=== PATIENT | female | born 1950 | race Caucasian/White ===

== ENCOUNTER 2017-05-17 10:09 | Outpatient (CLI) | payer MEDICARE ==
--- NOTE | 2017-05-24 16:29 | Mammography Report ---
DIGITAL SCREENING MAMMOGRAM: 05/17/2017 CLINICAL INDICATION: A 66-year-old with family history of breast cancer, for screening. COMPARISON: Films from [place], [place] dated 04/01/2010, 03/19/2009, 03/25/2008, 12/28/2006, . TECHNIQUE: Routine CC and MLO projections were obtained of the breasts. FINDINGS: The breasts demonstrate scattered fibroglandular densities bilaterally. Punctate, typicall y benign calcifications are present. No suspicious masses, clustered microcalcifications, or regions of architectural distortion are identified. IMPRESSION: BENIGN FINDINGS. RECOMMENDATION: ROUTINE ANNUAL SCREENING UNLESS OTHERWISE CLINICALLY INDICATED. BIRADS CATEGORY 2-BENIGN FINDINGS. STANDARD QUALIFYING STATEMENTS 1. This examination was reviewed with the aid of Computer-Aided Detection (CAD). 2. A negative or benign imaging report should not delay biopsy if clinically suspicious findings are present. Consider surgical consultation if warranted. More than 5% of cancers are not identified by i maging. 3. Dense breasts may obscure an underlying neoplasm. JOB #: [id number] EXT JOB #:[id number]
== END 2017-05-17 10:10 | disposition home or self-care (01) ==
LOC: DI 10:09
PROVIDERS: ATTEND Internal Medicine
DX: Z12.31 Encounter for screening mammogram for malignant neoplasm of breast (principal); Z80.3 Family history of malignant neoplasm of breast
CPT/HCPCS: 77067

== ENCOUNTER 2017-05-17 10:13 | Outpatient (CLI) | payer BC, MEDICARE ==
--- NOTE | 2017-05-18 08:28 | DEXA Report ---
DEXA SCAN: 05/17/2017 CLINICAL HISTORY: A 66-year-old postmenopausal female. TECHNIQUE: Dual energy x-ray absorptiometry (DXA) was performed on a [employer] system. Regions measured are the AP spine, femoral neck, and, if needed, forearm. COMPARISON: None. In accordance with the International Society for Clinical Densitometry (ISCD) guidelines, data from previous exams may be reanalyzed using current recommendations and techniques. This is done to allow a more accurate basis for comparison with the current study. FINDINGS: The data for the lumbar spine is as follows: REGION BMD (g/cm/cm) T-SCORE Z-SCORE L1 1.035 -0.8 -0.4 L2 1.486 2.4 2.8 L3 1.770 4.7 5.2 L4 1.554 2.9 3.4 TOTAL 1.468 2.9 2.8 NOTE: All evaluable vertebrae are used for classification. The data for the hip is as follows: REGION BMD (g/cm/cm) T-SCORE Z-SCORE Neck 0.986 -0.4 0.4 TOTAL 1.058 0.4 0.8 NOTE: The femoral neck or total proximal femur, whichever is lowest, is used for classification. IMPRESSION: L1 THROUGH L4 T-SCORE IS 2.4. THIS IS WITHIN NORMAL LIMITS ACCORDING TO THE WORLD HEALTH ORGANIZATION GUIDELINES. LEFT FEMORAL NECK T-SCORE IS -0.4. THIS IS WITHIN NORMAL LIMITS ACCORDING TO THE WORLD HEALTH ORGANIZATION GUIDELINES. TOTAL HIP T-SCORE IS 0.4. THIS IS WITHIN NORMAL LIMITS ACCORDING TO THE WORLD HEALTH ORGANIZATION GUIDELINES. THE WHO CLASSIFICATION BASED ON THE INTERNATIONAL REFERENCE STANDARD IS NORMAL. THE PATIENT HAS NO INCREASED FRACTURE RISK. RECOMMENDATION: Patients with diagnosis of osteoporosis or osteopenia should have regular bone mineral density assessment. For those eligible for Medicare, routine testing is allowed once every 2 years. Testing frequency can be increased for patients who have rapidly progressing disease or for those who are receiving medical therapy to restore bone mass. COMMENT: World Health Organization (WHO) definitions for osteoporosis and osteopenia: NORMAL BMD: T-score at -1.0 or higher, fracture risk is low. OSTEOPENIA BMD: T-score between -1.0 and -2.5, fracture risk is increased. OSTEOPOROSIS BMD: T-score at -2.5 or lower, fracture risk high. National Osteoporosis Foundation recommends: 1. Obtain adequate dietary calcium (at least 1200 mg per day) and vitamin D (400 -800 international units per day). 2. Participate, as appropriate, in regular weightbearing and muscle- strengthening exercise. 3. Avoid tobacco use and reduce alcohol and caffeine intake. 4. For more detailed information see the website at www.NOF.org. MTDD
== END 2017-05-17 10:14 | disposition home or self-care (01) ==
LOC: DI 10:13
PROVIDERS: ATTEND Internal Medicine
DX: Z13.820 Encounter for screening for osteoporosis (principal); N95.8 Other specified menopausal and perimenopausal disorders
CPT/HCPCS: 77080

== ENCOUNTER 2018-05-01 13:45 | Outpatient (CLI) | payer MEDICARE ==
--- NOTE | 2018-05-03 17:41 | Mammography Report ---
DIGITAL BILATERAL MAMMOGRAPHY AND RIGHT BREAST ULTRASOUND: 05/01/2018 HISTORY: Painful right breast lump. Family history of breast cancer. COMPARISON: 05/17/2017 BILATERAL MAMMOGRAPHY: TECHNIQUE: Bilateral digital CC, MLO, and right true lateral views with additional right spot compression views. FINDINGS: There is extensive fatty replacement of the breast tissue. There is a tiny area of faint asymmetric density in the right upper outer quadrant middle third in the region of the palpable lump. This was present on the prior study. Otherwise, there is no dominant mass, architectural distortion, skin thickening, suspicious microcalcifications or significant interval change. STANDARD QUALIFYING STATEMENTS 1. This examination was reviewed with the aid of Computed-Aided Detection (CAD) . 2. A negative or benign imaging report should not delay biopsy if clinically suspicious findings are present. Consider surgical consultation if warranted. More than 5 % of cancers are not identified by imaging. 3. Dense breasts may obscure an underlying neoplasm. RIGHT BREAST ULTRASOUND TECHNIQUE: Real-time scanning is performed of the right breast in the area of the palpable lump. FINDINGS: At the 9-o'clock position, there is a round simple cyst measuring 4 x 3.4 x 4 mm, accounting for the palpable finding. IMPRESSION: BENIGN. BIRADS category 2 - BENIGN FINDINGS. RECOMMENDATION: Suggest return to routine screening in 12 months. TD: 05/01/2018 15:13 TRISH
== END 2018-05-01 13:46 | disposition home or self-care (01) ==
LOC: DI 13:45
PROVIDERS: ATTEND Physician Assistant
DX: N63.10 Unspecified lump in the right breast, unspecified quadrant (principal); N64.4 Mastodynia; Z80.3 Family history of malignant neoplasm of breast
CPT/HCPCS: 76642; 77066

== ENCOUNTER 2018-06-05 14:37 | Emergency (ER) | payer MEDICARE ==
[2018-06-05] MEDS ORDERED: SODIUM CHLORIDE 0.9% 1,000 ML IV ONE (15:30)
[2018-06-05] MEDS ORDERED: KETOROLAC 60 MG/2 ML VIAL IVP STA (15:30)
[2018-06-05] MEDS ORDERED: DEXAMETHASONE 10 MG/ML VIAL PO STA (15:30)
[2018-06-05] MEDS ORDERED: diphenhydrAMINE INJ 50 MG/ML VIAL IVP STA (15:30)
[2018-06-05] MEDS ORDERED: METOCLOPRAMIDE 10 MG/2 ML VIAL IVP STA (15:30)
--- NOTE | 2018-06-05 15:34 | ED Physician Documentation ---
PD HPI HEADACHE - Stated complaint Stated Complaint: HEADACHE - Chief complaint Chief Complaint: Neuro - History obtained from History obtained from: Patient, Family - History of Present Illness Timing - onset: How many weeks ago (2) Timing - details: Gradual onset, Still present Location: Front, Global Quality: Aching. No: Thunderclap Associated symptoms: No: Fever, Stiff neck, Nausea, Vomiting, Weakness, Numbness , Syncope Worsened by: Light, Noise Similar symptoms before: Work up / diagnostics, Treatment Recently seen: Clinic - Additional information Additional information: Patient is a 67 year old female with a history of migraines who is presenting to the emergency department for a migraine. Patient states that it is similar to previous headaches but it is not breaking. Patient states that stress is her main trigger and currently she is under a lot of stress taking care of her who is sick. Patient denies any fever or neurological deficit. patietn states that she saw her pmd who told her she might need a ct. Review of Systems Ten Systems: 10 systems reviewed and negative Constitutional: denies: Fever, Chills Eyes: reports: Photophobia GI: denies: Nausea, Vomiting Musculoskeletal: denies: Neck pain Neurologic: reports: Headache. denies: Confused, Altered mental status, Head injury, LOC PD PAST MEDICAL HISTORY - Past Medical History Past Medical History: Yes Neuro: Migraines Psych: Depression Musculoskeletal: Fibromyalgia - Past Surgical History Past Surgical History: Yes Ortho: Knee replacement, Arthroscopic surgery, Carpal Tunnel surgery /SERVICE PLUMBER: Hysterectomy - Present Medications Home Medications: Ambulatory Orders Medication Instructions Recorded Confirmed Aspirin [Children's Aspirin] 81 mg PO 08/02/13 08/02/13 Duloxetine HCl [Cymbalta] 60 mg PO 08/02/13 08/02/13 Estradiol [Samira] 1 each TD 08/02/13 08/02/13 Etodolac 300 mg PO 08/02/13 08/02/13 Gabapentin [Neurontin] 600 mg PO 08/02/13 08/02/13 Ondansetron [Zofran] 4 mg PO Q6H PRN #10 tablet 08/02/13 Pantoprazole Sodium 40 mg PO 08/02/13 08/02/13 Topiramate [Topamax] 75 mg PO 08/02/13 08/02/13 Amitriptyline HCl 07/10/18 Rizatriptan Benzoate [Maxalt Government Property Inspector] 10 mg PO 06/05/18 - Allergies Allergies/Adverse Reactions: Allergies Allergy/AdvReac Type Severity Reaction Status Date / Time latex Allergy Intermediate Rash Verified 06/05/18 14:50 codeine [Codeine] AdvReac Unknown Hallucinati Verified 08/02/13 16:14 ons morphine AdvReac Unknown Nausea Verified 08/02/13 16:14 - Social History Does the pt smoke?: No Smoking Status: Never smoker Does the pt drink ETOH?: No Does the pt have substance abuse?: No - Immunizations Immunizations are current?: Yes - POLST Patient has POLST: No PD ED PE NORMAL - Vitals Vital signs reviewed: Yes - General General: Alert and oriented X 3 - HEENT HEENT: Atraumatic, PERRL, Moist mucous membranes - Neck Neck: Supple, no meningeal sign - Cardiac Cardiac: RRR - Respiratory Respiratory: No respiratory distress - Abdomen Abdomen: Non tender, Non distended - Derm Derm: Normal color, Warm and dry, No rash - Extremities Extremities: No deformity - Neuro Neuro: Alert and oriented X 3, machine grainer 2-12 intact, No motor deficit, Normal speech Eye Opening: Spontaneous Motor: Obeys Commands Verbal: Oriented GCS Score: 15 PD ED PE EXPANDED - General General: Alert, In Pain Results - Vitals Vitals: Vital Signs - 24 hr 06/05/18 06/05/18 06/05/18 14:42 18:19 18:37 Temperature 36.5 C Heart Rate 85 87 88 Respiratory 16 15 15 Rate Blood Pressure 200/99 H 144/79 H 156/86 H O2 Saturation 99 99 100 06/05/18 06/05/18 06/05/18 19:33 19:56 20:31 Temperature 36.6 C Heart Rate 96 91 80 Respiratory 16 16 16 Rate Blood Pressure 159/89 H 162/83 H 136/68 H O2 Saturation 97 97 99 Oxygen O2 Source Room air - Rads (name of study) ct head Radiology: Final report received (normal) PD MEDICAL DECISION MAKING - ED course Complexity details: reviewed old records, reviewed results, re-evaluated patient , considered differential, d/w patient ED course: patient was seen and examined at bedside. IV access was gained. patient was treated with a liter bolus, toradol, reglan and benadryl. Upon re-evaluation patient stated that her pain was still a 10. Patient was treated with ketamine 20mg and imaging was ordered. When patient returned from imaging she stated that her pain had only decreased from a ten to a 8. Patient was treated with dialudid 1mg. patient responded well to the therapy. Patient had no neurological disfunction. Patient required no further work up at this time and was stable for discharge with outpatient follow up. - Sepsis Event Vital Signs: Vital Signs - 24 hr 06/05/18 06/05/18 06/05/18 14:42 18:19 18:37 Temperature 36.5 C Heart Rate 85 87 88 Respiratory 16 15 15 Rate Blood Pressure 200/99 H 144/79 H 156/86 H O2 Saturation 99 99 100 06/05/18 06/05/18 06/05/18 19:33 19:56 20:31 Temperature 36.6 C Heart Rate 96 91 80 Respiratory 16 16 16 Rate Blood Pressure 159/89 H 162/83 H 136/68 H O2 Saturation 97 97 99 Oxygen O2 Source Room air Departure - Departure Disposition: 01 Home, Self Care Clinical Impression: Migraine Condition: Good Instructions: ED Headache Migraine Follow-Up: Dominick Powell MD [Primary Care Provider] - Tomorrow Comments: You should stay well hydrated and get plenty of rest. you should follow up with doctor tomorrow. You may return to the emergency department at any time for new, worsening or uncontrollable symptoms. Discharge Date/Time: 06/05/18 20:40
[2018-06-05] MEDS ORDERED: KETAMINE 500 MG/10 ML VIAL IVP STA (17:54)
[2018-06-05] MEDS ORDERED: HYDROmorphone 1 MG/ML CARPUJECT IVP STA (19:18)
--- NOTE | 2018-06-05 19:20 | CT Report ---
Procedure Date: 06/05/2018 Accession Number: [id number] / [id number] Procedure: CT - Head W/O CPT Code: FULL RESULT: EXAM: CT HEAD EXAM DATE: 06/05/2018 06:49 PM. CLINICAL HISTORY: Persistent headaches. COMPARISON: 08/02/2013. TECHNIQUE: Multiaxial CT images were obtained from the foramen magnum to the vertex. Reformats: Coronal. IV contrast: None. In accordance with CT protocol optimization, one or more of the following dose reduction techniques were utilized for this exam: automated exposure control, adjustment of mA and/or KV based on patient size, or use of iterative reconstructive technique. FINDINGS: Parenchyma: No intraparenchymal hemorrhage. No evidence of mass, midline shift, or CT findings of infarction. Del Real-white differentiation is distinct. Extraaxial Spaces: Normal for age. No subdural or epidural collections. Ventricles: Normal in size and position. Sinuses and Orbits: Imaged paranasal sinuses, orbits, and mastoids show no significant abnormality. Bones: Unremarkable. Other: None. IMPRESSION: Normal head CT. RADIA
[2018-06-05] MEDS ORDERED: oxyCODONE/ACET 5/325 Prepack 4 PO STA (20:26)
[2018-06-05 20:33] VITALS: BP 136/68
== END 2018-06-05 20:40 | disposition home or self-care (01) ==
LOC: ED 14:37
DX: G43.909 Migraine, unspecified, not intractable, without status migrainosus (principal); Z96.659 Presence of unspecified artificial knee joint; Z79.82 Long term (current) use of aspirin
CPT/HCPCS: 70450; 96361; 96374; 96375; 99283; 99284; J1170; J1200; J2765

== ENCOUNTER 2018-08-11 21:10 | Emergency (ER) | payer MEDICARE ==
--- NOTE | 2018-08-11 22:11 | XRAY Report ---
Reason: chest pain,sob Procedure Date: 08/11/2018 Accession Number: [id number] / [id number] Procedure: XR - Chest 1 View X-Ray CPT Code: 50965 FULL RESULT: EXAM: CHEST RADIOGRAPHY EXAM DATE: 08/11/2018 10:00 PM. CLINICAL HISTORY: Chest pain,sob. COMPARISON: XR CHEST 1 VIEWS 04/22/2011 7:47 PM. TECHNIQUE: 1 view. FINDINGS: Lungs/Pleura: Streaky opacity seen at the left lung base. The right lung is clear. No pleural effusion or pneumothorax. Mediastinum: Within exam limitations, the cardiomediastinal contour is normal. Other: None. IMPRESSION: Streaky left basilar opacity secondary to atelectasis versus airspace infiltrate. RADIA
[2018-08-11 22:28] LABS: ALBUMIN 3.8 g/dL (3.2-5.5); ALBUMIN/GLOBULIN RATIO 1.3 (1.0-2.2); BILIRUBIN,TOTAL 0.3 mg/dL (0.2-1.0); CALCIUM 8.5 mg/dL (8.5-10.3); CREATININE 0.8 mg/dL (0.4-1.0); TOTAL PROTEIN 6.7 g/dL (6.7-8.2)
[2018-08-11] MEDS ORDERED: IOPAMIDOL-300 100 ML VIAL ONE (23:16)
[2018-08-11] MEDS ORDERED: IOPAMIDOL-300 100 ML VIAL IVP ONE (23:34)
--- NOTE | 2018-08-12 00:05 | CT Report ---
Reason: chest pain, elevated dimer Procedure Date: 08/11/2018 Accession Number: [id number] / [id number] Procedure: CT - Chest Angio (PE) CPT Code: FULL RESULT: EXAM: CT ANGIOGRAM CHEST EXAM DATE: 08/11/2018 11:48 PM. CLINICAL HISTORY: Chest pain, elevated dimer. COMPARISON: CHEST W/O 11/22/2014 10:19 AM. TECHNIQUE: Routine helical imaging was performed through the chest in the pulmonary arterial phase. IV Contrast: ISOVUE 300 80mL. Reconstructions: Coronal 3-D MIP reconstructions.Sagittal and coronal. In accordance with CT protocol optimization, one or more of the following dose reduction techniques were utilized for this exam: automated exposure control, adjustment of mA and/or KV based on patient size, or use of iterative reconstructive technique. FINDINGS: Pulmonary Arteries: Diagnostic quality: Adequate through the segmental arteries. Segmental and subsegmental filling defects are seen in several right lung pulmonary artery branches. No definite left lung pulmonary emboli seen. There is no central saddle embolism. RV/LV is within normal limits. There is no interventricular septal bowing. There is no reflux of contrast material in the IVC. Lungs/Pleura: No consolidation, nodules, or edema. No effusions or pneumothorax. Mediastinum: Normal. No cardiac enlargement or adenopathy. Thoracic Aorta: Unremarkable. Upper Abdomen: Unremarkable. Other: None. IMPRESSION: 1. Several acute right lung segmental and subsegmental pulmonary artery branch emboli. RADIA
[2018-08-12 00:33] LABS: BASOPHILS % (AUTO) 0.9 %; EOSINOPHILS # (AUTO) 0.3 10^3/uL (0.0-0.7); EOSINOPHILS % (AUTO) 5.8 %; HGB - HEMOGLOBIN 12.8 g/dL (12.0-16.0); LYMPHOCYTES # (AUTO) 2.1 10^3/uL (1.5-3.5); MEAN CORPUSCULAR HEMOGLOBIN 28.2 pg (27.0-31.0); MEAN CORPUSCULAR HGB CONC 33.5 g/dL (32.0-36.0); MEAN CORPUSCULAR VOLUME 84.3 fL (81.0-99.0); MONOCYTES # (AUTO) 0.4 10^3/uL (0.0-1.0); MONOCYTES % (AUTO) 7.9 %; NEUTROPHILS # (AUTO) 2.3 10^3/uL (1.5-6.6); NEUTROPHILS % (AUTO) 45.4 %; PLT - PLATELET COUNT 201 10^3/uL (130-450); RED BLOOD COUNT 4.54 10^6/uL (4.20-5.40); RED CELL DISTRIBUTION WIDTH 14.4 % (12.0-15.0); WHITE BLOOD COUNT 5.2 x10^3/uL (4.8-10.8)
[2018-08-12] MEDS ORDERED: RIVAROXABAN 15 MG TABLET PO STA (00:33)
[2018-08-12 00:57] VITALS: BP 147/83
--- NOTE | 2018-08-12 01:10 | ED Physician Documentation ---
PD HPI CHEST PAIN - Stated complaint Stated Complaint: SOA/SIDE PX - Chief complaint Chief Complaint: Cardiac - History obtained from History obtained from: Patient, Family - History of Present Illness Timing - onset: Yesterday Timing - onset during: Rest Timing - details: Gradual onset, Still present Quality: Pressure, Aching Location: Left chest Radiation: Back Improved by: Rest Worsened by: Exertion, Inspiration Associated symptoms: Shortness of air, General Weakness Similar symptoms before: Has not had sx before Recently seen: Not recently seen - Additional information Additional information: Patient is a 67 year old female with no significant past medical history who is presenting to the emergency department for chest pain. patient states that it has been going on for the last few days. It is worse with exertion and patient reports generally just not feeling well. Review of Systems Constitutional: denies: Fever, Chills Cardiac: reports: Chest pain / pressure, Pedal edema. denies: Palpitations Respiratory: reports: Dyspnea. 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 - Present Medications Home Medications: Ambulatory Orders Medication Instructions Recorded Confirmed Aspirin [Children's Aspirin] 81 mg PO 08/02/13 08/02/13 Duloxetine HCl [Cymbalta] 60 mg PO 08/02/13 08/02/13 Estradiol [Samira] 1 each TD 08/02/13 08/02/13 Etodolac 300 mg PO 08/02/13 08/02/13 Gabapentin [Neurontin] 600 mg PO 08/02/13 08/02/13 Ondansetron [Zofran] 4 mg PO Q6H PRN #10 tablet 08/02/13 Pantoprazole Sodium 40 mg PO 08/02/13 08/02/13 Topiramate [Topamax] 75 mg PO 08/02/13 08/02/13 Amitriptyline HCl 06/05/18 Rizatriptan Benzoate [Maxalt Home Advisor] 10 mg PO 06/05/18 Rivaroxaban [Xarelto] 15 mg PO BID #41 tablet 08/12/18 Rivaroxaban [Xarelto] 20 mg PO DAILY #14 tablet 08/12/18 - Allergies Allergies/Adverse Reactions: Allergies Allergy/AdvReac Type Severity Reaction Status Date / Time latex Allergy Intermediate Rash Verified 08/11/18 21:26 codeine [Codeine] AdvReac Unknown Hallucinati Verified 08/11/18 21:26 ons morphine AdvReac Unknown Nausea Verified 08/11/18 21:26 - Social History Does the pt smoke?: No Smoking Status: Never smoker Does the pt drink ETOH?: No Does the pt have substance abuse?: No - Immunizations Immunizations are current?: Yes - POLST Patient has POLST: No PD ED PE NORMAL - Vitals Vital signs reviewed: Yes - General General: Alert and oriented X 3, No acute distress - HEENT HEENT: Atraumatic, PERRL - Cardiac Cardiac: RRR, No murmur - Respiratory Respiratory: No respiratory distress, Clear bilaterally - Abdomen Abdomen: Soft, Non tender, Non distended - Derm Derm: Normal color, Warm and dry, No rash - Extremities Extremities: No deformity - Neuro Neuro: Alert and oriented X 3, No motor deficit, Normal speech Eye Opening: Spontaneous Results - Vitals Vitals: Vital Signs - 24 hr 08/11/18 08/11/18 21:23 23:20 Temperature 36.3 C L Heart Rate 89 76 Respiratory 18 18 Rate Blood Pressure 195/91 H 147/83 H O2 Saturation 98 97 Oxygen O2 Source Room air - EKG (time done) 2130 Rate: Rate (enter#) (83) Rhythm: NSR Anthon: Normal Intervals: Normal MI QRS: Normal Ischemia: Normal ST segments - Labs Labs: Laboratory Tests 08/11/18 08/11/18 08/11/18 22:08 22:08 22:08 WBC RBC Hgb Hct MCV MCH MCHC RDW Plt Count MPV Neut # (Auto) Lymph # (Auto) [place] # (Auto) Eos # (Auto) Baso # (Auto) Absolute Nucleated RBC Nucleated RBC % D-Dimer Sodium 138 Potassium 3.5 Chloride 105 Carbon Dioxide 27 Anion Gap 6.0 BUN 15 Creatinine 0.8 Estimated GFR (MDRD) 72 L Glucose 83 Calcium 8.5 Total Bilirubin 0.3 AST 21 ALT 17 Alkaline Phosphatase 81 Troponin I < 0.04 B-Natriuretic Peptide 34 Total Protein 6.7 Albumin 3.8 Globulin 2.9 Albumin/Globulin Ratio 1.3 Lipase 40 08/11/18 08/12/18 22:08 00:30 WBC 5.2 RBC 4.54 Hgb 12.8 Hct 38.3 MCV 84.3 MCH 28.2 MCHC 33.5 RDW 14.4 Plt Count 201 MPV 8.0 Neut # (Auto) 2.3 Lymph # (Auto) 2.1 [place] # (Auto) 0.4 Eos # (Auto) 0.3 Baso # (Auto) 0.0 Absolute Nucleated RBC 0.00 Nucleated RBC % 0.0 D-Dimer 474.3 H Sodium Potassium Chloride Carbon Dioxide Anion Gap BUN Creatinine Estimated GFR (MDRD) Glucose Calcium Total Bilirubin AST ALT Alkaline Phosphatase Troponin I B-Natriuretic Peptide Total Protein Albumin Globulin Albumin/Globulin Ratio Lipase - Rads (name of study) ct angio chest Radiology: Final report received (segmental and sub segmental PE) PD MEDICAL DECISION MAKING - ED course Complexity details: reviewed old records, reviewed results, re-evaluated patient, considered differential, d/w patient, d/w family, d/w hearing consultant ED course: Patient was seen and examined at bedside. ekg was performed and was normal sinus. iv access was gained and labs were drawn. Patient's bnp and troponin were negative but patient had an elevated d-dimer so CT angio was performed. It showed sub segmental and segmental PE without any sign of right heart strain. Case was discussed with the patient who was offered admission. patient stated that she would rather start the medications and follow up with her doctor. Patient was started on xeralto 15 mg bid. Patient and daughter were given detailed discharge and follow up instructions. Patient and family were comfortable with the plan and patient was stable for discharge with outpatient follow up. - Sepsis Event Vital Signs: Vital Signs - 24 hr 08/11/18 08/11/18 21:23 23:20 Temperature 36.3 C L Heart Rate 89 76 Respiratory 18 18 Rate Blood Pressure 195/91 H 147/83 H O2 Saturation 98 97 Oxygen O2 Source Room air Departure - Departure Disposition: 01 Home, Self Care Clinical Impression: Pulmonary embolism Condition: Stable Instructions: Embolism Pulmonary Dc Follow-Up: Dominick Powell MD [Primary Care Provider] - Tomorrow Prescriptions: Rivaroxaban [Xarelto] 15 mg PO BID #41 tablet Rivaroxaban [Xarelto] 20 mg PO DAILY #14 tablet Comments: Your symptoms today are being caused by blood clots in your chest. You are being started on xarelto. You will take 15mg twice a day for 21 days, then 20mg daily. You cannot take any nsaids while taking it. You should call your doctor on monday and schedule a follow up appointment. You will need to be screened for cancer and should schedule an echocardiogram. You can return to the emergency department at any time for new, worsening or uncontrollable symptoms. Discharge Date/Time: 08/12/18 01:18
== END 2018-08-12 01:18 | disposition home or self-care (01) ==
LOC: ED 21:10
DX: I26.99 Other pulmonary embolism without acute cor pulmonale (principal); Z96.659 Presence of unspecified artificial knee joint; Z79.82 Long term (current) use of aspirin
CPT/HCPCS: 36415; 71045; 71275; 80053; 83690; 83880; 84484; 85025; 85379; 93005; 99283

== ENCOUNTER 2018-08-12 22:05 | Emergency (ER) | payer MEDICARE ==
--- NOTE | 2018-08-12 22:44 | ED Physician Documentation ---
PD HPI CHEST PAIN - Stated complaint Stated Complaint: CHEST PX - Chief complaint Chief Complaint: Resp - History obtained from History obtained from: Patient, Family - History of Present Illness Timing - onset: How many days ago (4) Timing - details: Gradual onset, Still present Quality: Sharp Location: Left chest Worsened by: Palpation, Position Associated symptoms: Shortness of air Similar symptoms before: Work up / diagnostics, Treatment Recently seen: Emergency Dept - Additional information Additional information: Patient is a 67 year old female with a history of fibromyalgia, and diagnosed yesterday with pulmonary embolisms who is presenting to the emergency department for left lateral chest pain. Patient was started on xeralto last night and was told to come back if her symptoms worsened. Patient states that she had pain along the outside of her left chest. patient's PEs were found on the right side. Review of Systems Ten Systems: 10 systems reviewed and negative Constitutional: denies: Fever, Chills Cardiac: reports: Chest pain / pressure. denies: Palpitations Respiratory: reports: Dyspnea. denies: Cough, Wheezing PD PAST MEDICAL HISTORY - Past Medical History Past Medical History: Yes Cardiovascular: Pulmonary embolism Neuro: Migraines Psych: Depression Musculoskeletal: Fibromyalgia - Past Surgical History Past Surgical History: Yes Ortho: Knee replacement, Arthroscopic surgery, Carpal Tunnel surgery /MEAT PASSER: Hysterectomy - Present Medications Home Medications: Ambulatory Orders Medication Instructions Recorded Confirmed Aspirin [Children's Aspirin] 81 mg PO 08/02/13 08/02/13 Duloxetine HCl [Cymbalta] 60 mg PO 08/02/13 08/02/13 Estradiol [Samira] 1 each TD 08/02/13 08/02/13 Gabapentin [Neurontin] 600 mg PO 08/02/13 08/02/13 Ondansetron [Zofran] 4 mg PO Q6H PRN #10 tablet 08/02/13 RX: Etodolac 300 mg PO 08/02/13 08/02/13 RX: Pantoprazole Sodium 40 mg PO 08/02/13 08/02/13 Topiramate [Topamax] 75 mg PO 08/02/13 08/02/13 RX: Amitriptyline HCl 06/05/18 Rizatriptan Benzoate [Maxalt Occupational Therapist Home Based] 10 mg PO 06/05/18 Lidocaine Patch 5% [Lidoderm Patch] 1 each TOP DAILY #14 patch 08/12/18 Rivaroxaban [Xarelto] 15 mg PO BID #41 tablet 08/12/18 Rivaroxaban [Xarelto] 20 mg PO DAILY #14 tablet 08/12/18 - Allergies Allergies/Adverse Reactions: Allergies Allergy/AdvReac Type Severity Reaction Status Date / Time latex Allergy Intermediate Rash Verified 08/11/18 21:26 codeine [Codeine] AdvReac Unknown Hallucinati Verified 08/11/18 21:26 ons morphine AdvReac Unknown Nausea Verified 08/11/18 21:26 - Social History Does the pt smoke?: No Smoking Status: Never smoker Does the pt drink ETOH?: No Does the pt have substance abuse?: No - Immunizations Immunizations are current?: Yes - POLST Patient has POLST: No PD ED PE NORMAL - Vitals Vital signs reviewed: Yes - General General: Alert and oriented X 3, No acute distress - HEENT HEENT: Atraumatic - Cardiac Cardiac: RRR, No murmur - Respiratory Respiratory: No respiratory distress - Abdomen Abdomen: Soft, Non tender, Non distended - Derm Derm: Normal color, No rash - Extremities Extremities: No deformity - Neuro Neuro: Alert and oriented X 3, No motor deficit, Normal speech Eye Opening: Spontaneous PD ED PE EXPANDED - Cardiac Cardiac: Chest wall TTP (tenderness to palpation of left lateral chest well, into axillary region and under the left breast) Results - Vitals Vitals: Vital Signs - 24 hr 08/12/18 08/12/18 22:10 23:06 Temperature 37.1 C Heart Rate 92 75 Respiratory 18 18 Rate Blood Pressure 150/80 H 122/71 O2 Saturation 95 94 Oxygen O2 Source Room air PD MEDICAL DECISION MAKING - ED course Complexity details: reviewed old records, re-evaluated patient, considered differential, d/w patient, d/w family, d/w it solutions sales consultant ED course: Patient was seen and examined at bedside. Patient was in no acute distress. Patient's pain was outside of the chest wall on the opposite side of the blood clots. patient's pain was not likely related to the PE. Hospitalist was called and came to evaluate the patient. patient was neither tachycardic or hypoxic. Patient was being appropriately treated for her PE. Patient and family felt comfortable going home. patient required no further inpatient work up and was stable for discharge with outpatient followup. - Sepsis Event Vital Signs: Vital Signs - 24 hr 08/12/18 08/12/18 22:10 23:06 Temperature 37.1 C Heart Rate 92 75 Respiratory 18 18 Rate Blood Pressure 150/80 H 122/71 O2 Saturation 95 94 Oxygen O2 Source Room air Departure - Departure Disposition: 01 Home, Self Care Clinical Impression: Chest wall pain Condition: Good Instructions: ED Chest Pain Costochondritis Follow-Up: Dominick Powell MD [Primary Care Provider] - Prescriptions: Lidocaine Patch 5% [Lidoderm Patch] 1 each TOP DAILY #14 patch Comments: Your symptoms today are unlikely due to your pulmonary embolism. You should continue with your xarelto. You can take tylenol as needed for pain or use the lidoderm patches. You will likely have symptoms for the next few weeks. you should follow up with your doctor this week and can return to the emergency department at any time for new, worsening or uncontrollable symptoms. Discharge Date/Time: 08/12/18 23:12
[2018-08-12] MEDS ORDERED: LIDOCAINE PATCH 5% TOP STA (22:57)
[2018-08-12 23:06] VITALS: BP 122/71
== END 2018-08-12 23:12 | disposition home or self-care (01) ==
LOC: ED 22:05
DX: R07.89 Other chest pain (principal); I26.99 Other pulmonary embolism without acute cor pulmonale; Z96.659 Presence of unspecified artificial knee joint; Z79.82 Long term (current) use of aspirin
CPT/HCPCS: 36415; 71045; 71275; 80053; 83690; 83880; 84484; 85025; 85379; 93005; 99283; A9270; Q9967

== ENCOUNTER 2018-08-17 13:10 | Outpatient (CLI) | payer MEDICARE | END 2018-08-17 13:11 | disposition home or self-care (01) | LOC: DI 13:10 | PROVIDERS: ATTEND Internal Medicine | DX: I26.99 Other pulmonary embolism without acute cor pulmonale (principal) | CPT/HCPCS: 93306 ==

== ENCOUNTER 2018-08-22 19:27 | Outpatient (CLI) | payer MEDICARE ==
--- NOTE | 2018-08-22 22:22 | Ultrasound Report ---
Reason: RECENT PE Procedure Date: 08/22/2018 Accession Number: [id number] / [id number] Procedure: US - Duplex Ext Veins Bilateral CPT Code: FULL RESULT: EXAM: BILATERAL LOWER EXTREMITY VENOUS ULTRASOUND EXAM DATE: 08/22/2018 08:15 PM. CLINICAL HISTORY: RECENT PE. COMPARISON: None. TECHNIQUE: Real-time sonographic vascular imaging was performed by the fashion consultant selling through the lower extremities utilizing both color-flow and Doppler spectral analysis. Multiple public utilities sales representative static images were saved for review. FINDINGS: Right: Common Femoral Vein (CFV): Normal. CFV-GSV Junction: Normal. Profunda Femoral Vein (PFV): Normal. Femoral Vein (FV) Prox: Normal. Femoral Vein (FV) Mid: Normal. Femoral Vein (FV) Dist: Limited visualization. Popliteal Vein: Normal. Posterior Tibial Veins: Limited visualization. Peroneal Veins: Not imaged. Left: Common Femoral Vein (CFV): Normal. CFV-GSV Junction: Normal. Profunda Femoral Vein (PFV): Normal. Femoral Vein (FV) Prox: Normal. Femoral Vein (FV) Mid: Limited visualization. Femoral Vein (FV) Dist: Limited visualization. Popliteal Vein: Normal. Posterior Tibial Veins: Limited visualization. Peroneal Veins: Not imaged. Other: Limited visualization due to patient's body habitus and constant twitching motion. History of fibromyalgia. Calf veins not well seen. IMPRESSION: No evidence for deep venous thrombosis bilaterally. See above. RADIA
== END 2018-08-22 19:28 | disposition home or self-care (01) ==
LOC: DI 19:27
PROVIDERS: ATTEND Internal Medicine
DX: I26.99 Other pulmonary embolism without acute cor pulmonale (principal)
CPT/HCPCS: 93970

== ENCOUNTER 2019-07-08 13:01 | Outpatient (CLI) | payer MEDICARE ==
--- NOTE | 2019-07-08 13:47 | SLEEP CARE CONSULTATION ---
Information from patient questionnaire entered by Cally Baig. I have reviewed and concur with the information entered by Cally Baig. This document represents the service I personally performed and the decisions made by me, See Payan MD, [facility]. History of Present Illness Previous diagnosis: Mild, Obstructive Sleep Apnea-Hypopnea Syndrome AHI: 7.3 Reason for CPAP/BiPAP follow up: other (Restart therapy) HPI additional information: HPI: Mrs. Joshi returned today for follow up of nasal CPAP therapy. She was diagnosed to have mild obstructive sleep apnea-hypopnea syndrome by a home sleep apnea test (HSAT). She was prescribed a CPAP last year but could not tolerate the treatment because she is allergic to the silicone masks. She tried to get a Dream Ibrahim cloth mask but the durable medical supplier cannot find her one. Her CPAP was then taken back because she was not compliance. The durable medical supplier never showed her the new ResMed AirTouch F-20 full face mask that has memory foam as its cushion. The patient would like to restart treatment. Subjective Initial [place] Sleepiness Scale score: 7 Current [place] Sleepiness Scale score: 7 Allergies and Home Medications Home medication list reviewed: Yes Review of Systems Review of systems same as previous: Yes Physical Exam Vital signs obtained and entered by: Dr. Payan Blood Pressure: 110/60 Heart Rate: 76 O2 Saturation: 98 Height: 5 ft 5 in Weight (kg): 92.986 kg Body Mass Index: 34.1 BMI Classification: Class 1 Neck circumference: 16 Mood/affect: Normal Impression and Plan IMPRESSION: 1. Obstructive Sleep Apnea-Hypopnea Syndrome, mild, presently untreated. The patient has lost some weight but continues to snore loudly. Because she was non-compliant, another sleep study is required to confirm the diagnosis before Medicare will cover the positive airway pressure therapy again. If she continues to have significant sleep disordered breathing, I will specify the ResMed AirTouch F-20 full face mask. PLAN: 1. Order an in-laboratory polysomnography. 2. Try to lose more weight 3. Return for follow up after the sleep study. This visit is time-based and I spent 15 minutes with the patient and more than 50% of the time was spent counseling the patient. I spent 100% of this 15 minute visit face to face with the patient with greater than 50% of this was spent time counseling the patient and coordination of care.
[2019-07-08 13:50] VITALS: BP 110/60
== END 2019-07-08 13:02 | disposition home or self-care (01) ==
LOC: SC 13:01
PROVIDERS: ATTEND Internal Medicine Pulmonary Disease
DX: G47.33 Obstructive sleep apnea (adult) (pediatric) (principal)
CPT/HCPCS: 99213; G0463; 99212

== ENCOUNTER 2019-07-31 20:38 | Outpatient (CLI) | payer MEDICARE | END 2019-07-31 20:39 | disposition home or self-care (01) | LOC: SC 20:38 | PROVIDERS: ATTEND Internal Medicine Pulmonary Disease | DX: G47.33 Obstructive sleep apnea (adult) (pediatric) (principal); G47.61 Periodic limb movement disorder | CPT/HCPCS: 95810 ==

== ENCOUNTER 2019-09-18 13:52 | Outpatient (CLI) | payer MEDICARE ==
[2019-09-18 15:07] VITALS: BP 104/70
--- NOTE | 2019-09-18 15:07 | SLEEP CARE CONSULTATION ---
Information from patient questionnaire entered by Nicole Nunes. I have reviewed and concur with the information entered by Nicole Nunes. This document represents the service I personally performed and the decisions made by me, Sabina Muñoz, RN, MSN, MUTUAL FUND ANALYST. History of Present Illness Accompanied by: daughter Initial [place] Sleepiness Scale score: 7 Current [place] Sleepiness Scale score: 7 Additional HPI information: MARYCARMEN CAT returns with daughter for follow up of the recently performed polysomnography and informed of findings. I explained the pathophysiology behind obstructive sleep apnea. We then spent quite a bit of time discussing different treatment options. For mild obstructive sleep apnea, surgery and oral appliance are alternatives to nasal CPAP therapy but in moderate or severe cases, nasal CPAP is the most effective and reliable treatment. I reviewed the impact of weight changes on sleep apnea and strongly recommended losing weight. After some discussion, the patient opted to go with the nasal CPAP therapy. Nasal autoCPAP set at [id number] will be ordered with rationale explained. A manual titration study will be ordered if unable to find optimal pressure with office adjustments. I explained how CPAP machine works with sample devices RespirMisohoni Dreamstation and Guidesly [id number] and what to expect when using the machine. Using CPAP every night in order to get used to it was emphasized. Patient advised to put CPAP mask on before getting into bed so as not to fall asleep without CPAP. To assist acclimation to CPAP use, it could also be used for a short time during day while reading or watching TV. The patient was instructed to call the CPAP supplier to discuss any mechanical problem that may occur. If the mask given is uncomfortable or is difficult to keep on through the night even with adjustment, contact the CPAP supplier as many will replace with another mask style if notified before 30 days. If snoring or perceives is not getting enough air or too much air from the machine, notify this office. [facility] patient education PAP tips reviewed and non pap treatment options reviewed and given to patient. Patient counseled not drink alcohol less than 4 hours before bedtime as it can increase snoring and apnea. Patient was cautioned about risks of drowsy driving until sleepiness symptoms resolve. Patient denies drowsy driving. [facility] patient education on snoring and sleep apnea given and reviewed. Sleep Study - Polysomnography Polysomnography findings: The quality of the study is good. The patient had normal sleep efficiency. The sleep architecture was abnormal for sleep fragmentation and reduced amount of time spent in REM sleep. Respiratory monitoring showed mild obstructive sleep apnea-hypopnea (AHI = 14.9) associated with frequent arousals, oxyhemoglobin desaturation and mild hypoxia (juan f oxygen saturation of 82%). The respiratory events occurred independently of sleep stage and body position (supine AHI = 12.7; non-supine = 21.78). Snore was loud in intensity. There was severe periodic leg movement of sleep not contributing to the sleep fragmentation. Cardiac rhythm was normal sinus rhythm without significant arrhythmia. No abnormal behavior (parasomnia) observed during the night. Allergies and Home Medications Known drug allergies: Yes Home medication list reviewed: Yes (patient will bring updated list next visit) Allergy and home medication list: Estradiol 1mg tab one daily Pantoprazole DR 40mg tab one daily Estropipate 0.75mg tab one daily Baclofen 10mg tab one twice daily Etodolac 300mg cap one 3 times a day Gabapentin 300mg cap 2 am, 2 pm and [address] 60mg cap one twice daily Topiramate 100mg tab one twice daily Ondansetron 8mg tab once at onset of headache Rizatriptan Benzoate 10mg tab once at onset of headache Clonazepam 0.5mg tab one twice daily Xarelto 20mg tab one daily Zyrtec (Ceterizine) 10mg tab one daily at bedtime Fluticasone Propionate 50mcg/act nasal Two sprays each nostril daily Hydrocholrothiazide 25mg tab once daily Polyethylene glycol powder 12.7g mix with 8oz water daily Docusate Sodium 250mg tab one daily Vitamin D3 25mcg cap one daily Trazodone 50mg nightly for sleep Review of Systems Review of systems same as previous: Yes Physical Exam Blood Pressure: 104/70 Cuff size: long Heart Rate: 76 O2 Saturation: 98 Weight: 214 lb 12.8 oz Impression and Plan 1. Obstructive Sleep Apnea-Hypopnea Syndrome, mild , with lowest oxygen saturation of 82%. Obviously this is the cause of the patients symptoms of unrefreshed sleep, and excessive daytime sleepiness. Positive pressure therapy could benefit her fibromyalgia and depression. As mentioned above, the patient will be re started on nasal autoCPAP therapy with pressure set at 4-15 cmH2O. She failed compliance when tried CPAP before due to mask issues. She has a reaction to the mask cushion. Thus I showed her mask barriers that can be obtained. Also she is to inform DME at set up of latex, silicon allergy. A manual titration study will be completed if unable to find optimal treatment pressure with office adjustments. Compliance guidelines also reviewed. A copy of compliance guidelines will be given for reference at check out. 2. Periodic limb movement,severe , that did not fragment patients sleep. Periodic limb movement of sleep (PLMS) is characterized by episodes of repetitive limb movements that occur during sleep and usually involve the lower limbs. The etiology is unknown but can be associated with restless leg syndrome (RLS), neuropathy, spinal cord diseases, kidney disease, rheumatological disorders, narcolepsy, obstructive sleep apnea, and REM sleep behavior disorder. Other factors that can increase PLMS and/or RLS are heredity and iron deficiency as reflected by a low serum ferritin level below 50 to 75mcg / L. Several medications can precipitate or aggravate PLMS such as selective serotonin re- uptake inhibitor antidepressants, tricyclic antidepressants, lithium, and dopamine receptor antagonists with the exception of bupropion. Caffeine can also aggravate PLMS and should be avoided. Sleep hygiene methods can also improve sleep as well as lifestyle changes such as regular exercise. Patient was advised that no treatment is needed at this time. If symptoms increase, then further evaluation is indicated. Patient has fibromyalgia and is on antidepressants which could augment symptoms. However, further evaluation is advised if her symptoms do not reduce with treatment of her apnea. * Restart Nasal auto CPAP therapy, pressure at 4-15 cm H2O. * Attempt to lose weight. * Needs non- silicone masks. * Consider cloth barriers shown - Pad a Cheek * Avoid alcohol consumption near bedtime. * The patient is again cautioned about driving until sleepiness completely resolves. * Return one month after CPAP obtained. I will assess response to therapy and compliance at that time. I spent 100% of this 45 minute visit face to face with the patient with greater than 50% of this was spent time counseling the patient and coordination of care.
== END 2019-09-18 13:53 | disposition home or self-care (01) ==
LOC: SC 13:52
PROVIDERS: ATTEND Nurse Practitioner Family
DX: G47.33 Obstructive sleep apnea (adult) (pediatric) (principal); G47.61 Periodic limb movement disorder
CPT/HCPCS: 99215; G0463; 99212

== ENCOUNTER 2019-11-28 11:53 | Day surgery (SDC) | payer MEDICARE ==
[2019-11-28] MEDS ORDERED: LACTATED RINGERS 1,000 ML IV ONE ×2 (12:31→14:03)
[2019-11-28] MEDS ORDERED: LIDO GARGLE 30 ML BOTTLE ONE (12:41)
[2019-11-28] MEDS ORDERED: fentaNYL 250 MCG/5 ML VIAL IVP ONE (13:20)
[2019-11-28] MEDS ORDERED: MIDAZOLAM 2 MG/2 ML VIAL IVP ONE (13:20)
[2019-11-28] MEDS ORDERED: LIDO GARGLE 30 ML BOTTLE PO ONE (13:27)
[2019-11-28 14:34] VITALS: BP 107/56
== END 2019-11-28 11:54 | disposition home or self-care (01) ==
LOC: SDS 11:53
PROVIDERS: ATTEND Surgery
PROC: 0DB68ZX Excision of Stomach, Via Natural or Artificial Opening Endoscopic, Diagnostic (ICD-10-PCS; 2019-11-28)
PROC: 0DB48ZX Excision of Esophagogastric Junction, Via Natural or Artificial Opening Endoscopic, Diagnostic (ICD-10-PCS; 2019-11-28)
PROC: 0DJD8ZZ Inspection of Lower Intestinal Tract, Via Natural or Artificial Opening Endoscopic (ICD-10-PCS; principal; 2019-11-28 13:30)
PROC: 0DB98ZX Excision of Duodenum, Via Natural or Artificial Opening Endoscopic, Diagnostic (ICD-10-PCS; 2019-11-28 13:30)
DX: Z12.11 Encounter for screening for malignant neoplasm of colon (principal); K21.9 Gastro-esophageal reflux disease without esophagitis; K29.70 Gastritis, unspecified, without bleeding; G47.30 Sleep apnea, unspecified; F32.9 Major depressive disorder, single episode, unspecified; F41.9 Anxiety disorder, unspecified; N32.89 Other specified disorders of bladder; Z79.02 Long term (current) use of antithrombotics/antiplatelets; Z79.899 Other long term (current) drug therapy; Z87.891 Personal history of nicotine dependence
CPT/HCPCS: 43239; A9270; G0121; J3010; J7120

== ENCOUNTER 2020-01-30 14:16 | Outpatient (CLI) | payer MEDICARE ==
--- NOTE | 2020-01-31 09:30 | Mammography Report ---
Reason: ROUTINE MAMMO Procedure Date: 01/30/2020 Accession Number: [id number] / [id number] Procedure: JOSE - Screening Mammo w/Marquis CPT Code: Final Report FULL RESULT: EXAM: Screening Mammo w/Marquis DATE: 01/30/2020 3:15 PM CLINICAL HISTORY: Screening encounter. Family history of breast cancer in the sister at the age of 50. TECHNIQUE: (B) - Bilateral CC and MLO views were obtained. COMPARISON: 05/01/2018 through 04/01/2010. PARENCHYMAL PATTERN: (A) - The breast(s) demonstrate(s) scattered fibroglandular densities. FINDINGS: There are no suspicious masses, calcifications, or areas of distortion. IMPRESSION: Negative examination. BI-RADS category 1. RECOMMENDATION: (ANNUAL) - Recommend routine annual screening mammography. BI-RADS CATEGORY: (1) - Negative. STANDARD QUALIFYING STATEMENTS: 1. This examination was not reviewed with the aid of Computer-Aided Detection (CAD). 2. A negative or benign imaging report should not preclude biopsy if clinically suspicious findings are present. 3. Dense breasts may obscure an underlying neoplasm. 4. This examination was reviewed with the aid of 3D breast imaging (tomosynthesis).
== END 2020-01-30 14:17 | disposition home or self-care (01) ==
LOC: DI 14:16
PROVIDERS: ATTEND Family Medicine
DX: Z12.31 Encounter for screening mammogram for malignant neoplasm of breast (principal); Z80.3 Family history of malignant neoplasm of breast
CPT/HCPCS: 77063; 77067

== ENCOUNTER 2020-02-25 14:25 | Outpatient (CLI) | payer MEDICARE ==
--- NOTE | 2020-02-25 14:14 | SLEEP CARE CONSULTATION ---
Information from patient questionnaire entered by Nicole Nunes. I have reviewed and concur with the information entered by Nicole Nunes. This document represents the service I personally performed and the decisions made by me, See Payan MD, [facility]. History of Present Illness Previous diagnosis: Mild, Obstructive Sleep Apnea-Hypopnea Syndrome AHI: 14.9 (in 2019) Reason for follow up: first compliance Equipment type: CPAP Equipment obtained from: [facility] HPI additional information: To minimize the risk of COVID-19 exposure, we have the option to conduct your visit with me over the phone. I will be able to discuss your health and offer medical advice. If you agree, we will bill your insurance. Do you agree to this telephone service: YES. HPI: Ms. Joshi was called today to follow up of nasal CPAP therapy. She was diagnosed to have mild obstructive sleep apnea-hypopnea syndrome. The patient wears with a ResMed AirTouch F-20 full face mask (she is allergic to silicone). She reports using the device nightly and all through the night. The compliance data show usage in 23 out of the past 30 nights, averaging 6.3 hours a night. The > 4 hour compliance rate for the past 30 days is 67%. She complained of puffy eyes in the morning but no particular problem with the device such as soreness on the face, dry nose, epistaxis, nasal congestion or headache. She thinks that the pressure of 4 - 15 cmH2O is comfortable. On the CPAP therapy she notices improvement in her sleep quality, and that she wakes up feeling fresher in the morning and more awake/alert during the day. The residual AHI is 2.6; and air leak, 8.1 L/min. The 90th percentile pressure is 11.9 cmH2O. CPAP Compliance Data - Data Reviewed with Patient Average duration of nightly device use: 6.25 Compliance rate %: 67 (01/09/20-02/07/20) Current pressure setting (cmH2O): 4-15 Humidity settin Average residual AHI: 2.6 Subjective Initial [place] Sleepiness Scale score: 7 Allergies and Home Medications Drug allergies reviewed: Yes Home medication list reviewed: Yes Review of Systems Review of systems same as previous: Yes Physical Exam Height: 5 ft 4 in Impression and Plan IMPRESSION: 1. Obstructive Sleep Apnea-Hypopnea Syndrome, mild (AHI was 14.9) with the patient doing well on nasal CPAP therapy. She has excellent compliance and significant clinical improvement. The current pressure appears effective and comfortable. Her mask fits well. Overall, she is very satisfied with treatment and plans to continue with it long-term. No adjustment is necessary today. PLAN: 1. Lower autoCPAP to 5 - 10 cmH2O. 2. Use the CPAP more 3. Try different sizes 4. Return in one month for follow up to check efficacy on the lower pressure setting. I spent 100% of the 12 minute phone call with the patient with greater than 50% of this spent counseling the patient and coordination of care.
== END 2020-02-25 14:26 | disposition home or self-care (01) ==
LOC: SC 14:25
PROVIDERS: ATTEND Internal Medicine Pulmonary Disease
DX: G47.33 Obstructive sleep apnea (adult) (pediatric) (principal)

== ENCOUNTER 2020-03-23 16:14 | Outpatient (CLI) | payer MEDICARE ==
--- NOTE | 2020-03-23 11:29 | SLEEP CARE CONSULTATION ---
Information from patient questionnaire entered by Cally Baig. I have reviewed and concur with the information entered by Cally Baig. This document represents the service I personally performed and the decisions made by me, Sabina Muñoz, RN, MSN, REHABILITATION SERVICES AIDE. History of Present Illness Service Date and Time: 03/23/2020 1100 Previous diagnosis: Mild, Obstructive Sleep Apnea-Hypopnea Syndrome AHI: 14.9 Reason for follow up: one month (with pressure change) Equipment type: CPAP Equipment obtained from: [facility] (no update since set up feels it is due to needing to meet compliance) Mask style: Full face (Air Touch) Mask brand: Resmed Backup mask available: No (Keep current mask when replaced as spare) Last cushion change: none set up CPAP Compliance Data - Data Reviewed with Patient Average duration of nightly device use: 7h 7m Compliance rate %: 93 Current pressure setting (cmH2O): 5-10 Average residual AHI: 2.5 Average large leak: 1.3 liters per minute but 95th % is 22.6 liters per minute Subjective Patient concerns: reports: mask leak noise (having problems keeping seal ), dry mouth, nose, throat (dry mouth). denies: aerophagia, mask discomfort, air blowing in eyes, condensation in mask/hose, nasal congestion, epistaxis, other Observed to snore while using device: No Current pressure setting perceived as: comfortable On therapy, patient: reports: sleeping better, awakening more refreshed, being more awake and alert during the day, more rested overall. denies: drowsiness while driving Initial [place] Sleepiness Scale score: 7 Physical Exam Height: 5 ft 4 in Impression and Plan 1. Obstructive Sleep Apnea-Hypopnea Syndrome, mild, with good treatment compliance and good apnea control. On CPAP therapy, the patient has better sleep quality and is more rested overall. However, she is having difficulty keeping her mask sealed and also having oral dryness. Thus now that she has met juan herndon, she is to call Sanna to update her mask cushions. So far it is working well in no skin irritation as was problem in past use of CPAP. I will also order for Sanna to instruct patient how to adjust humidity to reduce oral dryness. Control of mask leaks will also reduce oral dryness. Patient's apnea severity and rationale for treatment to reduce apnea, improve sleep quality and reduce hypertension, cardiovascular and cerebrovascular events was reviewed. In addition, I discussed how significant weight change can affect her CPAP pressure requirements. * Continue CPAP pressure at [id number] * Update cushion * Change humidity * Notify me if snoring with mask or feeling that the pressure is too much or too little * Call this office if any problems using CPAP * Return for follow up in 3 months , or sooner if concerns arise Visit Type: Telehealth Phone (to minimize COVID 19 exposure risk) Patient Location: Home Other Participants: Child (adult daughter answered question about snoring with CPAP) Location of Provider: Home Patient agrees and consents to this telehealth visit type: Yes Patient agrees to have their insurance billed: Yes Time Spent with Patient (minutes): 10 Provider Statement: I spent 100% of the Telehealth Phone Call with the patient with greater than 50% spent counseling the patient and coordination of care.
== END 2020-03-23 16:15 | disposition home or self-care (01) ==
LOC: SC 16:14
PROVIDERS: ATTEND Nurse Practitioner Family
DX: G47.33 Obstructive sleep apnea (adult) (pediatric) (principal)

== ENCOUNTER 2020-12-23 20:10 | Outpatient (CLI) | payer MEDICARE | END 2020-12-23 20:11 | disposition short-term general hospital (02) | LOC: EMS 20:10 | PROVIDERS: ATTEND Surgery | DX: R07.9 Chest pain, unspecified (principal); R07.1 Chest pain on breathing; M79.605 Pain in left leg | CPT/HCPCS: A0425; A0427 ==

== ENCOUNTER 2021-02-16 14:31 | Outpatient (CLI) | payer MEDICARE ==
--- NOTE | 2021-02-17 13:41 | Mammography Report ---
BILATERAL DIGITAL SCREENING MAMMOGRAM 3D/2D: 02/16/2021 CLINICAL: Routine screening. Comparison is made to exams dated: 01/30/2020 mammogram, 05/01/2018 mammogram, and 05/17/2017 mammogram - [facility]. There are scattered fibroglandular elements in both breasts. No significant masses, calcifications, or other findings are seen in either breast. There has been no significant interval change. IMPRESSION: NEGATIVE There is no mammographic evidence of malignancy. A 1 year screening mammogram is recommended. This exam was interpreted at Station ID: [id number]. NOTE: For mammograms, a report in lay terms will be sent to the patient. Approximately 15% of breast malignancies will not be visualized mammographically. In the management of a palpable breast mass, a negative mammogram must not discourage biopsy of a clinically suspicious lesion. Electronically Signed By: Cj Sierra M.D. ddp/penrad:02/16/2021 15:17:23 ACR BI-RADS Category 1: Negative 3341F PARENCHYMAL PATTERN: (A) - The breast(s) demonstrate(s) scattered fibroglandular densities. BI-RADS CATEGORY: (1) - 1 RECOMMENDATION: (ANNUAL) - Recommend routine annual screening mammography. 20220217 1 year screening LATERALITY: (B)
== END 2021-02-16 14:32 | disposition home or self-care (01) ==
LOC: DI 14:31
PROVIDERS: ATTEND Nurse Practitioner Family
DX: Z12.31 Encounter for screening mammogram for malignant neoplasm of breast (principal)

== ENCOUNTER 2021-04-12 10:39 | Outpatient (CLI) | payer MEDICARE ==
--- NOTE | 2021-04-12 10:59 | SLEEP CARE CONSULTATION ---
Information from patient questionnaire entered by Nicole Nunes. I have reviewed and concur with the information entered by Nicole Nunes. This document represents the service I personally performed and the decisions made by me, See Payan MD, [facility]. History of Present Illness Service Date and Time: 04/12/2021 1039 Previous diagnosis: Mild, Obstructive Sleep Apnea-Hypopnea Syndrome AHI: 14.9 (in 2019) Reason for follow up: annual (last seen 02/2020) Equipment type: CPAP Equipment obtained from: [facility] Mask style: Full face Mask brand: Resmed (Air Touch) Prior sleep studies: Yes Year and Where: 2019 - [facility] Type of Sleep Study: Polysomnography HPI additional information: HPI: Ms. Joshi returned today for follow up of nasal CPAP therapy. She was diagnosed to have mild obstructive sleep apnea-hypopnea syndrome. The patient went to [facility] in [place] for the equipment and was fitted with a full face mask. She reports using the device almost nightly and all through the night. The compliance report shows usage in 148 nights out of the past 180 nights, averaging 6 hours a night. She complained of water condensation in the hose but no particular problem with the device such as soreness on the face, dry nose, epistaxis, nasal congestion or headache. Her heated humidifier is set at 5. She does not know that she can adjust the tube temperature. She thinks that the pressure of 5 - 10 cmH2O is comfortable. On the CPAP therapy she notices improvement in her sleep quality, and that she wakes up feeling fresher in the morning and more awake/alert during the day. The average residual AHI is 2.8 : and air leak, 0.8 L/min. The 90th percentile pressure is 9.9 cmH2O. CPAP Compliance Data - Data Reviewed with Patient Average duration of nightly device use: 5 hr 58 min Compliance rate %: 73 (180 days) Current pressure setting (cmH2O): 5-10 Humidity settin Average residual AHI: 2.8 Subjective Initial [place] Sleepiness Scale score: 7 (in 2018) Allergies and Home Medications Drug allergies reviewed: Yes Home medication list reviewed: Yes Review of Systems Review of systems same as previous: Yes Physical Exam Height: 5 ft 4 in Impression and Plan IMPRESSION: 1. Obstructive Sleep Apnea-Hypopnea Syndrome, mild (AHI was 14.9 in 2019) with the patient doing well on nasal CPAP therapy. She has good compliance and significant clinical improvement. The current pressure appears effective and comfortable. Overall, she is very satisfied with treatment and plans to continue with it long-term. The patient was instructed to adjust the humidity and tube temperature to avoid water condensation in the hose. PLAN: 1. Continue with autoCPAP set at 5 - 10 cmH2O. 2. Try to lose weight 3. Adjust the heated humidifier and tube temperature. 4. Prescription made for supplies and faxed to [facility] in [place]. 5. Return in one year for follow up or earlier if there is any problem with the treatment. Visit Type: Telehealth Video Video Type: VSee Patient Location: Home Location of Provider: Office Patient agrees and consents to this telehealth visit type: Yes Patient agrees to have their insurance billed: Yes Time Spent with Patient (minutes): 15 Provider Statement: I spent 100% of the Telehealth Video Call with the patient with greater than 50% spent counseling the patient and coordination of care.
== END 2021-04-12 10:40 | disposition home or self-care (01) ==
LOC: SC 10:39
PROVIDERS: ATTEND Internal Medicine Pulmonary Disease
DX: G47.33 Obstructive sleep apnea (adult) (pediatric) (principal)

== ENCOUNTER 2021-07-02 16:47 | Outpatient (CLI) | payer MEDICARE ==
--- NOTE | 2021-07-02 18:40 | XRAY Report ---
PROCEDURE: Lumbar Spine 2 View INDICATIONS: LOW BACK PAIN TECHNIQUE: 2 views of the lumbar spine were acquired. COMPARISON: None. FINDINGS: Bones: 5 [id number]-[id number] vertebrae are present. Convex left lumbar scoliosis noted centered at L3. D isc space narrowing and hypertrophic facet joints noted in the lower lumbar spine. Grade 1 anterior s pondylolisthesis present at L4-5. No vertebral body compression fractures. No suspicious bony lesion s. Soft tissues: Overlying bowel gas pattern is normal. No suspicious soft tissue calcifications. IMPRESSION: Multilevel degenerative disease and arthropathy associated with thoracolumbar levoscoliosis and grade 1 L4-5 anterior spondylolisthesis Reviewed by: Jovanny Williamson MD on 07/02/2021 5:38 PM AKDT Approved by: Jovanny Williamson MD on 07/02/2021 5:38 PM AKDT Station ID: [id number]
== END 2021-07-02 16:48 | disposition home or self-care (01) ==
LOC: DI.S 16:47
PROVIDERS: ATTEND Nurse Practitioner Family
DX: M47.816 Spondylosis without myelopathy or radiculopathy, lumbar region (principal); M41.9 Scoliosis, unspecified; M43.16 Spondylolisthesis, lumbar region

== ENCOUNTER 2021-10-07 14:29 | Outpatient (CLI) | payer MEDICARE ==
--- NOTE | 2021-10-07 16:00 | XRAY Report ---
PROCEDURE: Chest 2 View X-Ray INDICATIONS: COUGH TECHNIQUE: 2 view(s) of the chest. COMPARISON: Chest x-ray 08/11/2018. FINDINGS: Surgical changes and devices: Partially visualized cervical fixation plates. Lungs and pleura: No pleural effusions or pneumothorax. Lungs are clear. Mediastinum: Mediastinal contours are normal. Heart size is normal. Bones and chest wall: No suspicious bony abnormalities. Soft tissues appear unremarkable. IMPRESSION: No acute pulmonary process. Reviewed by: Sary Schneider MD on 10/07/2021 3:59 PM PST Approved by: Sary Schneider MD on 10/07/2021 3:59 PM PST Station ID: [id number]
== END 2021-10-07 14:30 | disposition home or self-care (01) ==
LOC: DI.S 14:29
PROVIDERS: ATTEND Nurse Practitioner Family
DX: R05.9 Cough, unspecified (principal)

== ENCOUNTER 2022-06-02 12:54 | Emergency (ER) | payer MEDICARE ==
--- NOTE | 2022-06-02 13:11 | ED Physician Documentation ---
PD HPI MAJOR TRAUMA - Stated complaint Stated Complaint: FALL - Chief complaint Chief Complaint: Trauma Hd/Nk - History obtained from History obtained from: Patient, Family - Additional information Additional information: 71-year-old woman on Eliquis for history of thromboembolic disease thinks she fell asleep while going to the bathroom this morning at 4 AM and fell in the bathroom hitting the tile floor with her head. She felt quite weak and laid there for a few hours until her daughter got her off the ground. She complains of a left-sided headache and there is an obvious hematoma on the left side of the forehead. Loss of consciousness was unclear. She describes the headache as moderate. No other injuries save a mild pain in the right pinky finger. Review of Systems Ten Systems: 10 systems reviewed and negative Constitutional: reports: Reviewed and negative Eyes: reports: Reviewed and negative Throat: reports: Reviewed and negative Cardiac: reports: Reviewed and negative Respiratory: reports: Reviewed and negative PD PAST MEDICAL HISTORY - Past Medical History Past Medical History: Yes Cardiovascular: Pulmonary embolism Respiratory: Sleep apnea Neuro: Migraines GI: GERD HEENT: None Psych: Depression Musculoskeletal: Fibromyalgia, Chronic back pain - Past Surgical History Past Surgical History: Yes Ortho: Knee replacement, Arthroscopic surgery, Carpal Tunnel surgery /OPEN DIE INSPECTOR: Hysterectomy - Present Medications Home Medications: Ambulatory Orders Medication Instructions Recorded Confirmed Duloxetine HCl [Cymbalta] 60 mg PO BID 08/02/13 11/26/19 Etodolac 300 mg PO TID 08/02/13 11/26/19 Gabapentin [Neurontin] 600 mg PO TID 08/02/13 11/26/19 Ondansetron [Zofran] 4 mg PO Q6H PRN #10 tablet 08/02/13 11/26/19 Pantoprazole Sodium 40 mg PO DAILY 08/02/13 11/26/19 Topiramate [Topamax] 75 mg PO DAILY 08/02/13 11/26/19 estradioL [Samira] 1 each TD DAILY 08/02/13 11/26/19 Rizatriptan Benzoate [Maxalt Sap Bi Architect] 10 mg PO PRN PRN 06/05/18 11/26/19 Dabigatran Etexilate Mesylate 150 mg PO BID 11/28/19 11/28/19 [Pradaxa] hydroCHLOROthiazide 12.5 mg PO DAILY 11/28/19 11/28/19 [Hydrochlorothiazide] - Allergies Allergies/Adverse Reactions: Allergies Allergy/AdvReac Type Severity Reaction Status Date / Time latex Allergy Intermediate Rash Verified 06/02/22 13:03 codeine [Codeine] AdvReac Unknown Hallucinati Verified 06/02/22 13:03 ons morphine AdvReac Unknown Nausea Verified 06/02/22 13:03 adhesive tape AdvReac Rash Verified 06/02/22 13:03 amoxicillin [From Augmentin] AdvReac Nausea Verified 06/02/22 13:03 clavulanic acid AdvReac Nausea Verified 06/02/22 13:03 [From Augmentin] - Social History Does the pt smoke?: No Smoking Status: Never smoker Does the pt drink ETOH?: No Does the pt have substance abuse?: No - Immunizations Immunizations are current?: Yes - POLST Patient has POLST: No PD ED PE NORMAL - Vitals Vital signs reviewed: Yes - General General: Alert and oriented X 3, No acute distress - HEENT HEENT: PERRL, EOMI, Other (Bruising and swelling over the left forehead. No facial bony tenderness or deformity.) - Neck Neck: No bony TTP - Cardiac Cardiac: RRR, No murmur - Respiratory Respiratory: No respiratory distress, Clear bilaterally - Abdomen Abdomen: Normal bowel sounds, Soft, Non tender - Back Back: No CVA TTP, No spinal TTP - Derm Derm: Normal color, Warm and dry - Extremities Extremities: Other (I am not able to elicit any tenderness, swelling, or limited range of motion of the right pinky finger) - Neuro Neuro: Alert and oriented X 3, remote broadcast engineer 2-12 intact, No motor deficit, No sensory deficit, Normal speech Eye Opening: Spontaneous Motor: Obeys Commands Verbal: Oriented GCS Score: 15 Results - Vitals Vitals: Vital Signs - 24 hr 06/02/22 06/02/22 06/02/22 12:58 13:03 14:16 Temperature 36.3 C L 36.5 C Heart Rate 91 91 80 Respiratory 16 16 16 Rate Blood Pressure 132/70 H 132/70 H 109/60 O2 Saturation 96 96 97 06/02/22 06/02/22 14:30 15:32 Temperature 36.5 C Heart Rate 80 76 Respiratory 16 13 Rate Blood Pressure 110/60 109/64 O2 Saturation 98 92 Oxygen O2 Source Room air - Labs Labs: Laboratory Tests 06/02/22 06/02/22 06/02/22 13:11 13:11 16:24 WBC 5.2 RBC 4.57 Hgb 13.1 Hct 40.6 MCV 88.8 MCH 28.7 MCHC 32.3 RDW 13.6 Plt Count 239 MPV 9.6 Neut # (Auto) 3.0 Lymph # (Auto) 1.5 Mercer # (Auto) 0.6 Eos # (Auto) 0.1 Baso # (Auto) 0.0 Absolute Nucleated RBC 0.00 Nucleated RBC % 0.0 Sodium 138 Potassium 3.5 Chloride 101 Carbon Dioxide 25 Anion Gap 12.0 BUN 22 H Creatinine 0.7 Estimated GFR (MDRD) 83 L Glucose 105 H Calcium 9.0 Total Creatine Kinase 843 H Urine Color YELLOW Urine Clarity CLEAR Urine pH 6.0 Ur Specific Bondurant 1.010 Urine Protein NEGATIVE Urine Glucose (UA) NEGATIVE Urine Ketones TRACE Urine Occult Blood NEGATIVE Urine Nitrite NEGATIVE Urine Bilirubin MODERATE H Urine Urobilinogen 0.2 (NORMAL) Ur Leukocyte Esterase NEGATIVE Ur Microscopic Review NOT INDICATED Urine Culture Comments NOT INDICATED PD MEDICAL DECISION MAKING - ED course ED course: Although technically alert and oriented I have met her before and she does not seem quite as quick as normal. Asked her daughter if she thought she might be getting demented there definitely is a concern for that. She does not seem to be any worse mentally than any other day so it was an acute change from the head injury. CT scan of the head was without intracranial injury or skull fracture. She has very mild rhabdomyolysis that I Think can be managed with pushing p.o. fluids. There was a concern from the family about urinary frequency and the potential for UTI and a urine sample was obtained. She was able to ambulate here without issue or assistance. Stay was prolonged a bit because she did have urinary frequency and took a while to get a urine sample which was subsequently without signs of infection. Departure - Departure Disposition: 01 Home, Self Care Clinical Impression: Concussion Qualifiers: Encounter type: initial encounter Loss of consciousness presence/duration: alejandra lucas LOC Qualified Code(s): S06.0X0A - Concussion without loss of consciousness, initial encounter Condition: Good Record reviewed to determine appropriate education?: Yes Instructions: ED Concussion Comments: Drink plenty of fluids as you have mild rhabdomyolysis, thankfully though no indication of brain injury. Return for new or worsening symptoms. Follow-up with your doctor, next available appointment.
[2022-06-02 13:17] LABS: BASOPHILS % (AUTO) 0.8 %; EOSINOPHILS # (AUTO) 0.1 10^3/uL (0.0-0.7); EOSINOPHILS % (AUTO) 1.7 %; HCT - HEMATOCRIT 40.6 % (37.0-47.0); HGB - HEMOGLOBIN 13.1 g/dL (12.0-16.0); LYMPHOCYTES # (AUTO) 1.5 10^3/uL (1.5-3.5); LYMPHOCYTES % (AUTO) 28.5 %; MEAN CORPUSCULAR HEMOGLOBIN 28.7 pg (27.0-31.0); MEAN CORPUSCULAR HGB CONC 32.3 g/dL (32.0-36.0); MEAN CORPUSCULAR VOLUME 88.8 fL (81.0-99.0); MEAN PLATELET VOLUME 9.6 fL (7.9-10.8); MONOCYTES # (AUTO) 0.6 10^3/uL (0.0-1.0); MONOCYTES % (AUTO) 10.7 %; NEUTROPHILS % (AUTO) 58.1 %; PLT - PLATELET COUNT 239 10^3/uL (130-450); RED BLOOD COUNT 4.57 10^6/uL (4.20-5.40); RED CELL DISTRIBUTION WIDTH 13.6 % (12.0-15.0); WHITE BLOOD COUNT 5.2 x10^3/uL (4.8-10.8)
[2022-06-02 13:36] LABS: CREATININE 0.7 mg/dL (0.4-1.0); POTASSIUM 3.5 mmol/L (3.5-5.0)
--- NOTE | 2022-06-02 13:55 | CT Report ---
PROCEDURE: CT brain without contrast INDICATIONS: head injury, eliquis TECHNIQUE: Noncontrast 4.5 mm thick angled axial sections acquired from the foramen magnum to the vertex. For r adiation dose reduction, the following was used: automated exposure control, adjustment of mA and/or kV according to patient size. COMPARISON: None. FINDINGS: Image quality: Excellent. CSF spaces: Basal cisterns are patent. No extra-axial fluid collections. Ventricles are normal in size and shape. Brain: No midline shift. No intracranial masses or hemorrhage. [place]-white matter interface is norm al. Skull and face: Calvarium and visualized facial bones are intact, without suspicious lesions. Left frontal scalp hematoma. Bilateral intraocular lens replacements noted. Sinuses: Visualized sinuses and mastoids are clear. IMPRESSION: Left frontal scalp hematoma without underlying skull fracture or intracranial hemorrhage Reviewed by: Jovanny Williamson MD on 06/02/2022 12:54 PM AKDT Approved by: Jovanny Williamson MD on 06/02/2022 12:54 PM AKDT Station ID: [id number]
[2022-06-02 16:29] LABS: CLARITY,URINE CLEAR (CLEAR); GLUCOSE, URINE (UA) NEGATIVE (NEGATIVE); KETONES,URINE (UA) TRACE mg/dL (NEGATIVE); LEUKOCYTE ESTERASE, URINE NEGATIVE (NEGATIVE); NITRITE,URINE NEGATIVE (NEGATIVE); OCCULT BLOOD,URINE NEGATIVE (NEGATIVE); PROTEIN,URINE NEGATIVE (NEGATIVE); UROBILINOGEN,URINE 0.2 (NORMAL) E.U./dL (NORMAL)
[2022-06-02 16:37] LABS: BILIRUBIN,URINE MODERATE (NEGATIVE); ICTOTEST,URINE POSITIVE
[2022-06-02 16:55] VITALS: BP 129/80
== END 2022-06-02 17:01 | disposition home or self-care (01) ==
LOC: ED 12:54
DX: S06.0X0A Concussion without loss of consciousness, initial encounter (principal); W19.XXXA Unspecified fall, initial encounter; Y92.002 Bathroom of unspecified non-institutional (private) residence as the place of occurrence of the external cause; Z86.711 Personal history of pulmonary embolism; Z79.01 Long term (current) use of anticoagulants
CPT/HCPCS: 36415; 51701; 80048; 81001; 81003; 82550; 85025; 87086; 99282; 99284

== ENCOUNTER 2022-07-27 11:57 | Outpatient (CLI) | payer MEDICARE ==
[2022-07-27 12:17] LABS: CREATININE 0.7 mg/dL (0.4-1.0)
--- NOTE | 2022-07-28 16:11 | CT Report ---
PROCEDURE: CHEST W INDICATIONS: LUNG NODULE CONTRAST: IV CONTRAST: Optiray 320 ml: 100 PO CONTRAST: *NO PO CONTRAST TECHNIQUE: After the administration of intravenous contrast, 1 mm axial images were acquired from the pulmonary apices through the posterior costophrenic angles. Axial 5 mm soft tissue kernel reconstructions were performed as well as 8 mm axial MIP and coronal and sagittal 5 mm reformations. For radiation dose reduction, the following was used: automated exposure control, adjustment of mA and/or kV according to patient size. COMPARISON: CT pulmonary angiogram 08/11/2018. FINDINGS: Image quality: Excellent. Images are denoted as (series #/image #). CHEST: Lymph nodes: No highly suspicious lymph nodes visualized. Vasculature: Aorta and main pulmonary artery diameters are within normal range. Heart: No pericardial effusion. Lung parenchyma and pleura: 7 mm solid left lower lobe pulmonary nodule (4/128), unchanged. 5 mm righ t upper lobe nodule along the fissure medially (4/97), unchanged. 6 mm right lower lobe nodule neurodiagnostic technologist iorly (4/153), unchanged. No definite new suspicious or enlarging pulmonary nodule. No consolidation or pleural effusion. Chest wall/musculoskeletal: Partially imaged thoracolumbar fusion hardware. Visualized upper abdomen: Unchanged 2 cm left adrenal nodule, indeterminate but per ACR incidental fi ndings guidelines, stability greater than one year suggests a benign etiology and no imaging follow-u p is necessary. IMPRESSION: Previously demonstrated small pulmonary nodules are not significantly changed. Given near four-year s tability these are likely benign. No definite new suspicious or enlarging pulmonary nodule. Reviewed by: Glen Levy MD on 07/28/2022 4:10 PM PDT Approved by: Glen Levy MD on 07/28/2022 4:10 PM PDT Station ID: [id number]
== END 2022-07-27 11:58 | disposition home or self-care (01) ==
LOC: DI 11:57
PROVIDERS: ATTEND Internal Medicine
DX: R91.8 Other nonspecific abnormal finding of lung field (principal)
CPT/HCPCS: 36415; 71260; 82565; Q9967

== ENCOUNTER 2022-08-16 10:44 | Outpatient (CLI) | payer MEDICARE ==
--- NOTE | 2022-08-18 12:17 | Mammography Report ---
BILATERAL DIGITAL SCREENING MAMMOGRAM 3D/2D: 08/16/2022 CLINICAL: Routine screening. Family history of breast cancer. Comparison is made to exams dated: 02/16/2021 mammogram, 01/30/2020 mammogram, 05/01/2018 mammogram, and 05/01/2018 ultrasound - [facility]. Both breasts are almost entirely fatty (category a/<25% glandular tissue). No significant masses, calcifications, or other findings are seen in either breast. There has been no significant interval change. IMPRESSION: NEGATIVE There is no mammographic evidence of malignancy. A 1 year screening mammogram is recommended. Based on the Tyrer Cuzick model (a risk assessment model) the patients lifetime risk is 3.8% and her 10 year risk is 2.4%. According to the ACR, ACS, and NCCN guidelines, an annual breast MRI exam natalio g with mammogram is recommended if the patients lifetime risk is 20% or greater. This exam was interpreted at Station ID: [id number]. NOTE: For mammograms, a report in lay terms will be sent to the patient. Approximately 15% of breast malignancies will not be visualized mammographically. In the management of a palpable breast mass, a negative mammogram must not discourage biopsy of a clinically suspicious lesion. Electronically Signed By: Abril [email or web address]/spring:08/16/2022 18:01:21 ACR BI-RADS Category 1: Negative 3341F PARENCHYMAL PATTERN: (F) - The breast(s) demonstrate(s) diffuse fatty replacement. BI-RADS CATEGORY: (1) - 1 RECOMMENDATION: (ANNUAL) - Recommend routine annual screening mammography. 20230817 1 year screening LATERALITY: (B)
== END 2022-08-16 10:45 | disposition home or self-care (01) ==
LOC: DI.S 10:44
PROVIDERS: ATTEND Internal Medicine
DX: Z12.31 Encounter for screening mammogram for malignant neoplasm of breast (principal); Z80.3 Family history of malignant neoplasm of breast

== ENCOUNTER 2023-01-10 10:45 | Emergency (ER) | payer MEDICARE ==
[2023-01-10 11:30] LABS: BASOPHILS % (AUTO) 0.7 %; EOSINOPHILS # (AUTO) 0.1 10^3/uL (0.0-0.7); EOSINOPHILS % (AUTO) 1.5 %; HCT - HEMATOCRIT 48.3 % (37.0-47.0); HGB - HEMOGLOBIN 15.2 g/dL (12.0-16.0); LYMPHOCYTES # (AUTO) 1.1 10^3/uL (1.5-3.5); LYMPHOCYTES % (AUTO) 27.2 %; MEAN CORPUSCULAR HEMOGLOBIN 28.5 pg (27.0-31.0); MEAN CORPUSCULAR HGB CONC 31.5 g/dL (32.0-36.0); MEAN CORPUSCULAR VOLUME 90.6 fL (81.0-99.0); MONOCYTES # (AUTO) 0.3 10^3/uL (0.0-1.0); MONOCYTES % (AUTO) 8.5 %; NEUTROPHILS # (AUTO) 2.5 10^3/uL (1.5-6.6); NEUTROPHILS % (AUTO) 61.9 %; PLT - PLATELET COUNT 198 10^3/uL (130-450); RED BLOOD COUNT 5.33 10^6/uL (4.20-5.40); RED CELL DISTRIBUTION WIDTH 12.5 % (12.0-15.0)
[2023-01-10 11:43] LABS: ALBUMIN 4.2 g/dL (3.2-5.5); ALBUMIN/GLOBULIN RATIO 1.4 (1.0-2.2); BILIRUBIN,TOTAL 0.9 mg/dL (0.2-1.0); CALCIUM 9.3 mg/dL (8.5-10.3); CREATININE 0.7 mg/dL (0.4-1.0); POTASSIUM 3.3 mmol/L (3.5-5.0); TOTAL PROTEIN 7.1 g/dL (6.7-8.2)
[2023-01-10 11:56] LABS: BILIRUBIN,URINE NEGATIVE (NEGATIVE); GLUCOSE, URINE (UA) NEGATIVE (NEGATIVE); KETONES,URINE (UA) NEGATIVE (NEGATIVE); LEUKOCYTE ESTERASE, URINE NEGATIVE (NEGATIVE); NITRITE,URINE NEGATIVE (NEGATIVE); OCCULT BLOOD,URINE NEGATIVE (NEGATIVE); PROTEIN,URINE NEGATIVE (NEGATIVE); UROBILINOGEN,URINE 0.2 (NORMAL) E.U./dL (NORMAL)
[2023-01-10 11:57] LABS: CLARITY,URINE CLEAR (CLEAR)
--- NOTE | 2023-01-10 14:52 | ED Physician Documentation ---
PD HPI ABD PAIN - Stated complaint Stated Complaint: CONSTIPATION - Chief complaint Chief Complaint: Abd Pain - History obtained from History obtained from: Patient - History of Present Illness Timing - onset: How many days ago (7 days ago was last bM, and she is having feeling of rectal pressure/fullness but no stool out with home enema, culcolax. Some lower abd fullness and cramps. no general abd pain.) Timing - duration: Days (7) Timing - details: Gradual onset, Still present Quality: Cramping, Aching Location: Suprapubic Radiation: No: Chest, Lower back Associated symptoms: Constipation. No: Vomiting, Diarrhea, Melena Similar symptoms before: Diagnosis (has had constipation related to less mobility from back surgery and chronic pain meds for that (methadone0. Takes dulcolax and senna at home without improvement.) Review of Systems Constitutional: denies: Fever, Chills GI: reports: Abdominal Pain (lower abd cramping intermittently.), Constipation. denies: Vomiting, Diarrhea PD PAST MEDICAL HISTORY - Past Medical History Cardiovascular: Pulmonary embolism Respiratory: Sleep apnea Neuro: Migraines GI: GERD HEENT: None Psych: Depression Musculoskeletal: Fibromyalgia, Chronic back pain - Past Surgical History Past Surgical History: Yes Ortho: Knee replacement, Arthroscopic surgery, Carpal Tunnel surgery /CONSULTING GROUP ANALYST: Hysterectomy - Present Medications Home Medications: Ambulatory Orders Medication Instructions Recorded Confirmed Duloxetine HCl [Cymbalta] 60 mg PO BID 08/02/13 11/26/19 Etodolac 300 mg PO TID 08/02/13 11/26/19 Gabapentin [Neurontin] 600 mg PO TID 08/02/13 11/26/19 Ondansetron [Zofran] 4 mg PO Q6H PRN #10 tablet 08/02/13 11/26/19 Pantoprazole Sodium 40 mg PO DAILY 08/02/13 11/26/19 Topiramate [Topamax] 75 mg PO DAILY 08/02/13 11/26/19 estradioL [Samira] 1 each TD DAILY 08/02/13 11/26/19 Rizatriptan Benzoate [Maxalt [place]] 10 mg PO PRN PRN 06/05/18 11/26/19 Dabigatran Etexilate Mesylate 150 mg PO BID 11/28/19 11/28/19 [Pradaxa] hydroCHLOROthiazide 12.5 mg PO DAILY 11/28/19 11/28/19 [Hydrochlorothiazide] Docusate Sodium 100Mg Capsule 100 mg PO DAILY #20 cap 01/10/23 [Colace 100Mg Capsule] polyethylene glycoL 3350 [Miralax] 17 gm PO DAILY PRN #1 each 01/10/23 - Allergies Allergies/Adverse Reactions: Allergies Allergy/AdvReac Type Severity Reaction Status Date / Time latex Allergy Intermediate Rash Verified 01/10/23 11:05 codeine [Codeine] AdvReac Unknown Hallucinati Verified 01/10/23 11:05 ons morphine AdvReac Unknown Nausea Verified 01/10/23 11:05 adhesive tape AdvReac Rash Verified 01/10/23 11:05 amoxicillin [From Augmentin] AdvReac Nausea Verified 01/10/23 11:05 clavulanic acid AdvReac Nausea Verified 01/10/23 11:05 [From Augmentin] - Social History Does the pt smoke?: No Smoking Status: Never smoker Does the pt drink ETOH?: No Does the pt have substance abuse?: No - Immunizations Immunizations are current?: Yes - POLST Patient has POLST: No PD ED PE NORMAL - Vitals Vital signs reviewed: Yes - General General: Alert and oriented X 3, No acute distress, Well developed/nourished - Abdomen Abdomen: Normal bowel sounds, Soft, Non tender, No organomegaly, Other (some fullness in lower and left abd c/w constipation. Can check bladder scanner too. Minimal to no tenderness really. ) - Female Female : Deferred - Rectal Rectal: Other (baseball sized mass of stool just at tip of finger distance. I divided this into smaller segments with fingertip. Unable to extract stool per se with finger. Will add enema. ) - Back Back: No CVA TTP - Derm Derm: Normal color, Warm and dry Results - Vitals Vitals: Vital Signs - 24 hr 01/10/23 01/10/23 01/10/23 10:59 15:00 15:35 Temperature 36.4 C L Heart Rate 91 82 Respiratory 16 18 18 Rate Blood Pressure 147/90 H 118/74 O2 Saturation 98 97 01/10/23 01/10/23 01/10/23 16:20 17:06 17:57 Temperature 36.8 C Heart Rate 81 71 81 Respiratory 16 17 16 Rate Blood Pressure 110/70 132/89 H O2 Saturation 98 99 97 Oxygen O2 Source Room air - Labs Labs: Laboratory Tests 01/10/23 01/10/23 01/10/23 11:24 11:24 11:45 WBC 4.0 L RBC 5.33 Hgb 15.2 Hct 48.3 H MCV 90.6 MCH 28.5 MCHC 31.5 L RDW 12.5 Plt Count 198 MPV 10.0 Neut # (Auto) 2.5 Lymph # (Auto) 1.1 L [place] # (Auto) 0.3 Eos # (Auto) 0.1 Baso # (Auto) 0.0 Absolute Nucleated RBC 0.00 Nucleated RBC % 0.0 Sodium 141 Potassium 3.3 L Chloride 107 Carbon Dioxide 25 Anion Gap 9.0 BUN 13 Creatinine 0.7 Estimated GFR (MDRD) 82 L Glucose 103 H Calcium 9.3 Total Bilirubin 0.9 AST 14 ALT 13 Alkaline Phosphatase 85 Total Protein 7.1 Albumin 4.2 Globulin 2.9 Albumin/Globulin Ratio 1.4 Lipase 35 Urine Color YELLOW Urine Clarity CLEAR Urine pH 7.0 Ur Specific Silva <=1.005 Urine Protein NEGATIVE Urine Glucose (UA) NEGATIVE Urine Ketones NEGATIVE Urine Occult Blood NEGATIVE Urine Nitrite NEGATIVE Urine Bilirubin NEGATIVE Urine Urobilinogen 0.2 (NORMAL) Ur Leukocyte Esterase NEGATIVE Ur Microscopic Review NOT INDICATED Urine Culture Comments NOT INDICATED PD Medical Decision Making - ED course Complexity details: re-evaluated patient (large BM after the digital disimpact ion and then mineral oil enema. Patient feeling much better. We discussed further med/stool regimen for helping ongoing bMs. ), d/w patient (daughter is bedside and contributes the medications that patient has tried and supplements, as patient with some memory deficit for med list. ), d/w family (daughter) Reviewed Lab Results: checked bladder scanner and verbal from nursing is small amount. the patient presents with constipation and rectal fullness and has large stool on digital exam. Not really tender in abdomen generally. Considered but do not see need for imaging such as cT. Drug Therapy Requiring Monitoring for Toxicity: she is on methadone for back pain. this will hinder GI motility. She is also sedentary so less motility as well. Need some irritant laxative as well as stool softener to enhance softness and peristalsis (mush and push). Departure - Departure Disposition: 01 Home, Self Care Clinical Impression: Fecal impaction of colon Constipation Qualifiers: Constipation type: drug induced constipation Qualified Code(s): K59.03 - Drug induced constipation Condition: Stable Record reviewed to determine appropriate education?: Yes Instructions: ED Constipation Follow-Up: Dominick Powell MD [Primary Care Provider] - Prescriptions: Docusate Sodium 100Mg Capsule [Colace 100Mg Capsule] 100 mg PO DAILY #20 cap polyethylene glycoL 3350 [Miralax] 17 gm PO DAILY PRN #1 each PRN Reason: Constipation Comments: It is good that you had a large bowel movement here. That at least clears the lower and below of the impaction. We want to continue with this loose and steady movement of the stool through the intestine. I would suggest adding docusate stool softener daily. Also MiraLAX stool softener 1 dose/glass full twice daily for the next several days to week and then once daily after that. Decrease use of it if you are finding your stool to loose. I would still continue with the senna tablet which is more of an irritant mild laxative. Take that daily or every other day. Given your daily pain medication, the treatment for constipation is to improve upon both the "mush and push" components of it so a combination of irritant laxatives with stool softeners is useful. I sent prescriptions for the [address] medicines [address] [facility] in [place]. I also printed a copy if you wish somewhere else. They may be available [id number] but are often available prescription as well. See if it is c overed. Discharge Date/Time: 01/10/23 17:58
[2023-01-10] MEDS ORDERED: polyethylene glycoL 3350 17 GM PACKET PO STA (15:53)
[2023-01-10] MEDS ORDERED: DOCUSATE SODIUM 100 MG CAPSULE PO STA (15:53)
[2023-01-10] MEDS ORDERED: MINERAL OIL ENEMA 133 ML BOTTLE RC STA (15:53)
[2023-01-10 17:59] VITALS: BP 132/89
== END 2023-01-10 17:58 | disposition home or self-care (01) ==
LOC: ED 10:45
DX: K59.00 Constipation, unspecified (principal)
CPT/HCPCS: 36415; 80053; 81003; 83690; 85025; 99283; A9270; 81001; 87086

== ENCOUNTER 2023-06-29 13:30 | Outpatient (CLI) | payer MEDICARE ==
[2023-06-29 20:47] LABS: ALBUMIN 4.3 g/dL (3.2-5.5); ALBUMIN/GLOBULIN RATIO 1.7 (1.0-2.2); BILIRUBIN,TOTAL 0.5 mg/dL (0.2-1.0); CALCIUM 9.5 mg/dL (8.5-10.3); CREATININE 0.7 mg/dL (0.6-1.3); POTASSIUM 3.5 mmol/L (3.5-4.5); TOTAL PROTEIN 6.9 g/dL (6.4-8.9)
[2023-06-29 21:01] LABS: THYROID STIMULATING HORMONE 0.58 uIU/mL (0.34-5.60)
== END 2023-06-29 13:31 | disposition home or self-care (01) ==
LOC: LAB.S 13:30
PROVIDERS: ATTEND Internal Medicine Endocrinology, Diabetes & Metabolism
DX: M40.204 Unspecified kyphosis, thoracic region (principal)
CPT/HCPCS: 36415; 80053; 82306; 83970; 84439; 84443; 84480

== ENCOUNTER 2023-08-09 11:40 | Outpatient (CLI) | payer MEDICARE ==
--- NOTE | 2023-08-10 11:22 | Mammography Report ---
BILATERAL DIGITAL SCREENING MAMMOGRAM 3D/2D: 08/09/2023 CLINICAL: Routine screening. Comparison is made to exams dated: 08/16/2022 mammogram, 02/16/2021 mammogram, 01/30/2020 mammogram, 05/01 mammogram, and 05/17/2017 mammogram - [facility]. There are scattered areas of fibroglandular density in both breasts (category b / 25%-50% glandular t issue). No significant masses, calcifications, or other findings are seen in either breast. There has been no significant interval change. IMPRESSION: NEGATIVE There is no mammographic evidence of malignancy. A 1 year screening mammogram is recommended. Based on the Tyrer Cuzick model (a risk assessment model) the patients lifetime risk is 5.4% and her 10 year risk is 3.7%. According to the ACR, ACS, and NCCN guidelines, an annual breast MRI exam natalio g with mammogram is recommended if the patients lifetime risk is 20% or greater. This exam was interpreted at Station ID: [id number]. NOTE: For mammograms, a report in lay terms will be sent to the patient. Approximately 15% of breast malignancies will not be visualized mammographically. In the management of a palpable breast mass, a negative mammogram must not discourage biopsy of a clinically suspicious lesion. Electronically Signed By: Ki lund/spring:08/09/2023 18:03:26 letter sent: No_Letter ACR BI-RADS Category 1: Negative 3341F PARENCHYMAL PATTERN: (A) - The breast(s) demonstrate(s) scattered fibroglandular densities. BI-RADS CATEGORY: (1) - 1 Mammogram [id number] 1 year screening LATERALITY: (B)
== END 2023-08-09 11:41 | disposition home or self-care (01) ==
LOC: DI 11:40
PROVIDERS: ATTEND Internal Medicine
DX: Z12.31 Encounter for screening mammogram for malignant neoplasm of breast (principal)

== ENCOUNTER 2023-08-26 11:10 | Outpatient (CLI) | payer MEDICARE | END 2023-08-26 23:59 | disposition left against medical advice (07) | LOC: EMS 11:10 | DX: R07.89 Other chest pain (principal) ==

== ENCOUNTER 2024-08-05 16:27 | Outpatient (CLI) | payer MEDICARE ==
--- NOTE | 2024-08-05 14:57 | SLEEP CARE CONSULTATION ---
Information from patient questionnaire entered by Anna Hogue. I have reviewed and concur with the information entered by Anna Hogue. This document represents the service I personally performed and the decisions made by me, See Payan MD, [facility]. History of Present Illness Service Date and Time: 08/05/2024 1420 Previous diagnosis: Mild, Obstructive Sleep Apnea-Hypopnea Syndrome AHI: 14.9 (in 2019) Reason for follow up: annual (LAST SEEN 06/2022) Equipment type: CPAP Equipment obtained from: [employer] Mask style: Full face [facility] Yes [facility] Type of Sleep Study: Polysomnography HPI additional information: Ms. Joshi was seen today via video telemedicine ([employer]) today for follow up of nasal CPAP therapy. She was diagnosed to have mild obstructive sleep apnea- hypopnea syndrome. The patient went to [facility] in [place] for the equipment and was fitted with a full face mask. She reports using the device almost nightly and all through the night. The compliance report shows usage in 324 nights out of the past 365 nights, averaging 6.3 hours a night. She complained of water condensation in the hose but no particular problem with the device such as soreness on the face, dry nose, epistaxis, nasal congestion or headache. Her heated humidifier is set at 5. She does not know that she can adjust the tube temperature. She thinks that the pressure of 5 - 10 cmH2O is comfortable. On the CPAP therapy she notices improvement in her sleep quality, and that she wakes up feeling fresher in the morning and more awake/alert during the day. Her [place] Sleepiness Scale score is 8. The average residual AHI is 16.5 (was 3.8): and air leak, 1.8 L/min. The 90th percentile pressure is 9.9 cmH2O. Sleep Study - Results Type of Sleep Study: Polysomnography Prior [facility]: Yes [facility] Compliance Data - Data Reviewed with Patient Average duration of nightly device use: 6HRS 30MINS Compliance rate %: 92 (08/03/23-08/01/24) Current pressure setting (cmH2O): 5-10 Average residual AHI: 15.5 Subjective Initial [place] Sleepiness Scale score: 7 (in 2018) Current [place] Sleepiness Scale score: 8 (08/05/24) Allergies and Home Medications Drug allergies reviewed: Yes Home medication list reviewed: Yes Allergy and home medication list: Allergies latex Allergy (Intermediate, Verified 08/05/24 14:15) Rash codeine [Codeine] Adverse Reaction (Unknown, Verified 08/05/24 14:15) Hallucinations morphine Adverse Reaction (Unknown, Verified 08/05/24 14:15) Nausea adhesive tape Adverse Reaction (Verified 08/05/24 14:15) Rash amoxicillin [From Augmentin] Adverse Reaction (Verified 08/05/24 14:15) Nausea clavulanic acid [From Augmentin] Adverse Reaction (Verified 08/05/24 14:15) Nausea Review of Systems Review of systems same as previous: Yes (NO CHANGE) Physical Exam Vital signs obtained and entered by: ANNA Asher MA Height: 5 ft 5 in (PER PT) Weight: 162 lb (PER PT) Body Mass Index: 26.9 BMI Classification: Overweight Mood/affect: normal Impression and Plan IMPRESSION: 1. Obstructive Sleep Apnea-Hypopnea Syndrome, mild (AHI was 14.9 in 2019) with the patient continuing to use her CPAP regularly. The average residual AHI has increased from 3.8 to 16.5, and mostly central apneas. Most likely, this is due to her 40-lb weight loss. PLAN: 1. Repeat in-laboratory polysomnography to see if she still needs to use CPAP. If she does, a new machine will be prescribed at a lower pressure setting. 2. Return for follow up after the sleep study. Follow up with Sleep Care in: 1-2 months Visit Type: Telehealth Video Video Type: Narcisa Patient Location: Home Location of Provider: Office Patient agrees and consents to this telehealth visit type: Yes Patient agrees to have their insurance billed: Yes Time Spent with Patient (minutes): 15 Provider Statement: I spent 100% of the Telehealth Video Call with the patient with greater than 50% spent counseling the patient and coordination of care.
== END 2024-08-05 16:28 | disposition home or self-care (01) ==
LOC: SC 16:27
PROVIDERS: ATTEND Internal Medicine Pulmonary Disease
DX: G47.33 Obstructive sleep apnea (adult) (pediatric) (principal); E66.3 Overweight; Z68.26 Body mass index [BMI] 26.0-26.9, adult